=== PATIENT | female | born 1960 | race Caucasian/White ===

== ENCOUNTER 2024-11-11 08:56 | Outpatient (CLI) | payer MEDICARE, SELFPAY ==
--- NOTE | 2024-11-11 09:03 | MM_ITS ---
WS: [id number] SCREENING DIGITAL BREAST TOMOSYNTHESIS MAMMOGRAM WITH CAD HISTORY: SCREENING COMPARISON: 04/15/2015, 11/05/2011 Bilateral CC and MLO with tomosynthesis and synthetic mammography submitted. Computer aided detection analyzed. Breast composition: The breasts are extremely dense, which lowers the sensitivity of mammography. Numerous bilateral breast masses are identified. Some of these masses are new since 2011. Increased density mass is reniform in shape measuring 8 x 13 x 13 mm in the posterior medial RIGHT breast near 9:00. This may be 2 separate masses together. There is an additional high density well-circumscribed mass in the posterior medial LEFT breast measuring 7 x 6 x 8 mm. Partially obscured mass in the anterior lateral LEFT breast, retroareolar measures 5 x 6 x 5 mm. There is a additional asymmetry also in the anterior LEFT breast lateral to the nipple line which needs further evaluation. MM/MM scr BI tomosynthesis [id number] IMPRESSION: BI-RADS: 0 - Incomplete: Need additional imaging evaluation FOLLOW UP: Need Additional Imaging LEFT breast: Spot compression views (CC and MLO). True ML. Ultrasound to follow if abnormality persists. Spot the anterior lateral LEFT breast. Bilateral breast ultrasound: RIGHT breast medial posterior near 9:00. LEFT [address] posterior medial near 3:00. Also anterior LEFT breast.
== END 2024-11-11 08:57 | disposition home or self-care (01) ==
LOC: RAD 08:58
PROVIDERS: PCP Family Medicine; Visit Provider Family Medicine
DX: Z12.31 Encounter for screening mammogram for malignant neoplasm of breast (principal); R92.343 Mammographic extreme density, bilateral breasts; N63.15 Unspecified lump in the right breast, overlapping quadrants; N63.25 Unspecified lump in the left breast, overlapping quadrants; N63.20 Unspecified lump in the left breast, unspecified quadrant
CPT/HCPCS: 77063; 77067

== ENCOUNTER 2024-12-14 08:43 | Outpatient (CLI) | payer MEDICARE, SELFPAY ==
--- NOTE | 2024-12-14 08:50 | MM_ITS ---
WS: [id number] ADDITIONAL VIEWS LEFT MAMMOGRAM WITH DIGITAL BREAST TOMOSYNTHESIS. Bilateral breast ultrasound, limited. HISTORY: ABNORMAL MAMMOGRAM COMPARISON: 11/11/2024, 04/15/2015 Spot compression views LEFT breast in CC, MLO projections and true ML submitted with digital breast tomosynthesis and SM. Multiple spot compression views LEFT breast. Breast composition: The breasts are extremely dense, which lowers the sensitivity of mammography. There are multiple masses which are partially obscured throughout the LEFT breast. Some of these masses are of increased density. Some are partially obscured. 10 mm mass in the posterior upper inner quadrant of the LEFT breast. There are several nodules along the anterior breast, retroareolar. Ultrasound to be performed. Bilateral breast ultrasound, limited. RIGHT: Ovoid cyst in the posterior RIGHT breast at 9:00 corresponds to the mammographic abnormality. Cyst measures 1.0 x 0.7 x 0.5 cm. LEFT breast: There are multiple scattered cysts throughout the breast. Largest is towards 12:00 posterior to the nipple which corresponds to the most posterior mass seen by mammography. This mass measures 1.5 x 0.8 x 0.6 cm. There are additional scattered cysts and dilated ducts. Hypoechoic mass is solid at 6:00, 3 cm from the nipple measuring 0.8 x 0.9 x 0.7 cm. 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 MM/MM diag RT tomosynthesis [id number] IMPRESSION: BI-RADS: 3 - Probably Benign FOLLOW UP: 6 Month Follow-up Recommend LEFT breast ultrasound follow-up in 6 months to to reevaluate the mor e solid mass at 6:00, 3 cm the nipple. 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 This ma y've been present on prior studies but obscured by the dense fibroglandular tis dank. Alternatively, core biopsy performed by ultrasound can also be obtained. Multiple bilateral cystic masses in each breast as above.
== END 2024-12-14 08:44 | disposition home or self-care (01) ==
PROVIDERS: PCP Family Medicine; Visit Provider Family Medicine
DX: R92.8 Other abnormal and inconclusive findings on diagnostic imaging of breast (principal); R92.343 Mammographic extreme density, bilateral breasts; N60.01 Solitary cyst of right breast; N60.12 Diffuse cystic mastopathy of left breast; N63.25 Unspecified lump in the left breast, overlapping quadrants
CPT/HCPCS: 76642; 77061; G0279

== ENCOUNTER → 2025-01-12 07:59 | Outpatient (BNVA) | payer MEDICARE, SELFPAY | PROVIDERS: PCP Family Medicine; Visit Provider Nurse Practitioner Family | DX: D22.5 Melanocytic nevi of trunk (principal); L57.8 Other skin changes due to chronic exposure to nonionizing radiation; L81.4 Other melanin hyperpigmentation; L82.1 Other seborrheic keratosis; W89.1XXA Exposure to tanning bed, initial encounter; C44.519 Basal cell carcinoma of skin of other part of trunk | CPT/HCPCS: 11102; 99203 ==

== ENCOUNTER → 2025-02-10 08:25 | Outpatient (BNVA) | payer MEDICARE, SELFPAY | PROVIDERS: PCP Family Medicine; Visit Provider Dermatology | DX: C44.519 Basal cell carcinoma of skin of other part of trunk (principal) | CPT/HCPCS: 11603; 12032; 99213 ==

== ENCOUNTER → 2025-07-07 09:15 | Outpatient (BNVA) | payer MEDICARE, SELFPAY | PROVIDERS: PCP Family Medicine; Visit Provider Nurse Practitioner Family | DX: L57.8 Other skin changes due to chronic exposure to nonionizing radiation (principal); W89.1XXA Exposure to tanning bed, initial encounter; L81.4 Other melanin hyperpigmentation; L82.1 Other seborrheic keratosis; D22.5 Melanocytic nevi of trunk; Z08 Encounter for follow-up examination after completed treatment for malignant neoplasm; Z85.828 Personal history of other malignant neoplasm of skin; L57.0 Actinic keratosis | CPT/HCPCS: 17000; 99213 ==